=== PATIENT | female | born 1965 | race Caucasian/White ===

== ENCOUNTER → 2020-12-31 | Outpatient (CLI) | payer BC | LOC: EXRD 13:08 | DX: R79.89 Other specified abnormal findings of blood chemistry (principal) | CPT/HCPCS: 76775 ==

== ENCOUNTER → 2021-07-01 | Outpatient (CLI) | payer BC | LOC: KOH-I 09:20 | DX: M25.50 Pain in unspecified joint (principal); M16.0 Bilateral primary osteoarthritis of hip | CPT/HCPCS: 73522; 73564 ==

== ENCOUNTER → 2021-07-14 | Outpatient (CLI) | payer BC | LOC: KOH-I 11:36 | DX: R93.6 Abnormal findings on diagnostic imaging of limbs (principal) | CPT/HCPCS: 73590 ==